=== PATIENT | female | born 1970 | race Caucasian/White ===

== ENCOUNTER 2018-05-17 14:12 | Day surgery (SDC) | payer BC ==
[2018-05-17] MEDS ORDERED: LIDOCAINE 100 MG SYRINGE (15:55)
[2018-05-17] MEDS ORDERED: PROPOFOL 20 ML (15:55)
[2018-05-17] MEDS ORDERED: MIDAZOLAM 1 MG/ML 2 ML INJ (15:55)
[2018-05-17] MEDS ORDERED: FENTAnyl 50 MCG/ML VIAL (15:56)
[2018-05-17] MEDS ORDERED: BUPIVACAINE 0.5% (SDV) 30 ML INJ ×2 (16:03→17:03)
[2018-05-17] MEDS ORDERED: LIDOCAINE 2% (MDV) 20 ML INJ (16:03)
[2018-05-17] MEDS ORDERED: LIDOCAINE 1% (MPF) 30 ML INJ (16:03)
[2018-05-17] MEDS ORDERED: POLYMYXIN/BACITRACIN 1L IRRIG (16:04)
[2018-05-17] MEDS ORDERED: ONDANSETRON 4 MG INJ (16:16)
[2018-05-17] MEDS ORDERED: OXYCODONE/ACETAMINOPHEN (5/325) TAB PO (16:30)
[2018-05-17] MEDS ORDERED: FENTAnyl 50 MCG/ML VIAL IV ×2 (16:30)
[2018-05-17] MEDS ORDERED: HYDROmorphONE 1 MG/5 ML IV SYRINGE IV ×2 (16:30)
[2018-05-17] MEDS ORDERED: ONDANSETRON 4 MG INJ IV (16:30)
[2018-05-17] MEDS: POLYMYXIN/BACITRACIN 1L IRRIG (17:09)
[2018-05-17] MEDS: BUPIVACAINE 0.5% (SDV) 30 ML INJ (17:09)
[2018-05-17] MEDS: LIDOCAINE 2% (MDV) 20 ML INJ (17:09)
[2018-05-17] MEDS ORDERED: EPHEDrine 25 MG/5 ML SYG (17:12)
[2018-05-17] MEDS: FENTAnyl 50 MCG/ML VIAL IV ×2 (17:58→18:10)
[2018-05-17] MEDS: KETOROLAC 30 MG INJ IV (17:58)
[2018-05-17] MEDS: OXYCODONE/ACETAMINOPHEN (5/325) TAB PO (19:13)
== END 2018-05-17 19:55 | disposition home or self-care (01) ==
LOC: SDS 14:12
DX: M86.8X7 Other osteomyelitis, ankle and foot (principal); E11.9 Type 2 diabetes mellitus without complications; I10 Essential (primary) hypertension; E03.9 Hypothyroidism, unspecified
CPT/HCPCS: 28820; 73630-LT; 82962; 88305; 88311